=== PATIENT | male | born 1985 | race American Indian/Alaskan Native ===

== ENCOUNTER 2019-09-02 07:54 | Emergency (ER) | payer SELFPAY ==
[2019-09-02 08:04] VITALS: BP 151/109
--- NOTE | 2019-09-02 10:15 | Emergency Department Report ---
Chief Complaint: Pain General Stated Complaint: BODYACHE/LEG PAIN Time Seen by Provider: 09/02/19 10:10 - HPI History of Present Illness: Patient is a 33-year-old gentleman, not known to this provider previously, states he does not have a local primary care doctor, or chronic medical conditions, presenting with 3 days of extremity aches, body aches. No fevers that he is aware of. No additional complaints. Is not really taken any [id number]-dwcqycu analgesics. On initial examination, he is afebrile with reassuring vital signs, walking with a steady gait, and soft muscular compartments. there is no facial droop. The tongue is midline. The extraocular movements are intact bilaterally. There is 5/5 strength in the bilateral upper and lower extremities. Sensation is intact to light touch in the bilateral upper and lower extremities. Hearing is intact. Tongue is midline. Speech is fluid, lucent and intact. Appropriate thought content. V1, V2, V3 intact bilaterally. Walks with a steady gait. 2+ pulses noted in the bilateral upper and lower extremities. There is no long bony tenderness. The pelvis is stable. The muscular compartments are soft. There is no palpable cord. There is no redness, pus or streaking. S1, S2, regular rate and rhythm. No murmurs, rubs or gallops. Abdomen soft and benign, with no rebound, guarding or peritoneal signs. Lung sounds clear to auscultation bilaterally. Most likely has viral syndrome, or influenza-like illness, not a candidate for antiviral therapy, secondary to duration of symptoms. This does not represent an emergency medical condition. The patient can follow up with an outpatient primary care doctor. We discussed that he could take [id number]-[id number] analgesics, such as Tylenol and/or ibuprofen. He can also follow up with an outpatient primary care doctor for incidentally elevated blood pressure. Vital Signs 09/02/19 07:59 Temperature 99.1 F Pulse Rate 77 Respiratory 20 Rate Blood Pressure 151/109 O2 Sat by Pulse 98 Oximetry - Exam Vital Signs: Vital Signs 09/02/19 07:59 Temperature 99.1 F Pulse Rate 77 Respiratory 20 Rate Blood Pressure 151/109 O2 Sat by Pulse 98 Oximetry MSE screening note: Focused history and physical exam performed. Due to findings the following was ordered: ED Disposition for MSE Clinical Impression: General medical exam, Body aches Disposition: MED SCREENING EXAM-LEFT Is pt being admited?: No Does the pt Need Aspirin: No Condition: Stable Additional Instructions: Avoid heavy lifting and strenuous physical activities. Participate in physical activities as tolerated. Drink plenty of fluids, make certain to take Tylenol every 4-6 hours as needed for pain, ibuprofen, every 6 hours with food as needed for pain. Follow-up with a primary medical doctor within the next 2-3 weeks. Return to the emergency room right away with new, worsening or different symptoms not present on initial emergency room evaluation. Referrals: [facility] [Provider Group] - 3-5 Days ЮЛИЯ CORNELL MD [Staff Physician] - 3-5 Days
== END 2019-09-02 11:48 | disposition left against medical advice (07) ==
LOC: ED 07:54
DX: M79.605 Pain in left leg (principal); M79.604 Pain in right leg
CPT/HCPCS: 99281